=== PATIENT | male | born 1990 | race Caucasian/White ===

== ENCOUNTER 2020-04-21 12:55 | Emergency (ER) | payer MEDICAID ==
[~2020-04-21] VITALS: Ht 175.3 cm; Wt 81.6 kg
[2020-04-21 12:55] VITALS: BP_SYST 134
[2020-04-21] MEDS ORDERED: KETOROLAC TROMETHAMINE 60 MG/2 ML VIAL IM ONE (13:15)
[2020-04-21] MEDS ORDERED: MORPHINE 4 MG/ML INJ. SYRINGE IM ONE (14:00)
[2020-04-21 14:55] VITALS: BP_SYST 131
== END 2020-04-21 14:54 | disposition home or self-care (01) ==
LOC: SED 12:55
DX: S52.512A Displaced fracture of left radial styloid process, initial encounter for closed fracture (principal); F17.200 Nicotine dependence, unspecified, uncomplicated; W22.8XXA Striking against or struck by other objects, initial encounter; Y93.89 Activity, other specified; Y92.89 Other specified places as the place of occurrence of the external cause; Y99.8 Other external cause status
CPT/HCPCS: 29105; 73100; 96372; 99284; J1885; J2270

== ENCOUNTER 2022-06-06 03:01 | Emergency (ER) | payer MEDICAID ==
[~2022-06-06] VITALS: Ht 175.3 cm; Wt 81.6 kg
[2022-06-06 03:08] VITALS: BP_SYST 129
--- NOTE | 2022-06-06 03:15 | NUR ---
pt bib by law enforcement for ok to book. pt c/c is lt wrist pain due to handcuff placement. VSS. pt denies and PMH but confirms drug abuse. MD Lemos assessing pt. wctm
--- NOTE | 2022-06-06 03:18 | NUR ---
pt okayed to Dc per ED MD. pt medically cleared and is ok to book. advised pt to f/u with pcp. verbalized understanding, VSS. pt left facility ambulatory accompanied by law enforcement. [place] #[id number]
== END 2022-06-06 03:18 ==
LOC: SED 03:01
DX: M25.532 Pain in left wrist (principal); Z79.899 Other long term (current) drug therapy
CPT/HCPCS: 99283